=== PATIENT | male | born 1995 | race Two or more races ===

== ENCOUNTER 2018-11-21 11:04 | Emergency (ER) | payer MEDICAID ==
[~2018-11-21] VITALS: Ht 170.2 cm; Wt 61.2 kg
[2018-11-21 12:04] LABS: Basophils # (auto) 0.1 uL; Basophils % (auto) 0.9 % (0.0-2.0); Eosinophils # (auto) 0.1 uL; Eosinophils % (auto) 1.3 % (0.0-7.0); Hematocrit 44.2 % (41.0-53.0); Hemoglobin 15.3 g/dL (13.5-17.5); Lymphocytes # (auto) 1.7 uL; Lymphocytes % (auto) 27.9 % (10.0-50.0); Mean Corpuscular Hemoglobin 31.4 pg (28.0-32.0); Mean Corpuscular Hgb Conc. 34.5 g/dL (32.0-36.0); Mean Corpuscular Volume 90.8 fL (80.0-100.0); Monocytes # (auto) 0.4 uL; Monocytes % (auto) 7.3 % (0.0-12.0); Neutrophils # (auto) 3.8 uL; Neutrophils % (auto) 62.6 % (37.0-80.0); Nucleated Red Blood Cells % 0.2 %; Platelet Count (auto) 234 10^3/uL (140-450); Red Blood Cells 4.86 10^6/uL (4.5-5.90); Red Cell Distribution Width 12.9 % (11.8-14.3)
[2018-11-21 12:08] LABS: Albumin 3.9 g/dL (3.4-5.0); Calcium 8.4 mg/dL (8.5-10.1); Potassium 3.8 mmol/L (3.5-5.1)
[2018-11-21 12:14] LABS: BUN/Creatinine Ratio 8.7; Bilirubin, Total 0.5 mg/dL (0.2-1.0); Total Protein 6.5 g/dL (6.4-8.2)
[2018-11-21 16:10] VITALS: BP 124/64
== END 2018-11-21 16:38 | disposition home or self-care (01) ==
LOC: ER 11:11
DX: K29.70 Gastritis, unspecified, without bleeding (principal); J45.909 Unspecified asthma, uncomplicated; F17.210 Nicotine dependence, cigarettes, uncomplicated; F12.10 Cannabis abuse, uncomplicated; Z87.11 Personal history of peptic ulcer disease
CPT/HCPCS: 36415; 80053; 82150; 83690; 85025

== ENCOUNTER 2019-06-29 12:44 | Emergency (ER) | payer MEDICAID ==
[~2019-06-29] VITALS: Ht 170.2 cm; Wt 59.0 kg
[2019-06-29 15:45] VITALS: BP 90/69
[2019-06-29] MEDS ORDERED: BACITRACIN TOP OINT 1 UD PKG TOP ONE (16:00)
== END 2019-06-29 16:48 | disposition home or self-care (01) ==
LOC: ER 12:49
DX: S61.216A Laceration without foreign body of right little finger without damage to nail, initial encounter (principal); S61.411A Laceration without foreign body of right hand, initial encounter; J45.909 Unspecified asthma, uncomplicated; F17.210 Nicotine dependence, cigarettes, uncomplicated; X58.XXXA Exposure to other specified factors, initial encounter; Y93.89 Activity, other specified; Y92.89 Other specified places as the place of occurrence of the external cause; Y99.8 Other external cause status
CPT/HCPCS: 12001; 73130

== ENCOUNTER 2025-03-07 21:44 | Emergency (ER) | payer MEDICAID ==
[~2025-03-07] VITALS: Ht 170.2 cm; Wt 64.5 kg
--- NOTE | 2025-03-07 22:36 | ED.PDOC ---
History of Present Illness(SKN HPI Comments 29-year-old male presents to the ED chief complaint left ankle swelling and redness x3 days. Patient states over the past 24 hours symptoms have progressed he states redness started after he scratched it he is unsure on what he got bit by states he was lying in bed when something bit him. Denies fever, chills, nausea, vomiting, diarrhea, chest pain, difficulty breathing, shortness breath, numbness or weakness. Chief Complaint: Insect Bite Time Seen by MD: 22:04 Primary Care Provider: NONE History of Present Illness: Nurses Notes, Medications, Allergies Allergies: Coded Allergies: NO KNOWN ALLERGIES (Unverified , 12/29/13) Home Meds Active Scripts Hydroxyzine Hcl (Hydroxyzine Hcl) 50 Mg Tab, 1 TAB PO QPM PRN for 5 Days, #5 TAB Prov:ASIA BROWN [employer] 03/07/25 Prednisone (Prednisone) 20 Mg Tab, 20 MG PO DAILY@BREAKFAST for 3 Days, #3 TAB Prov:ASIA BROWN [employer] 03/07/25 Doxycycline Hyclate (Doxycycline Hyclate) 100 Mg Cap, 100 MG PO BID for 7 Days, #14 CAP Prov:ASIA BROWN [employer] 03/07/25 Information Source: Patient Mode of Arrival: Ambulatory Past Medical History PAST MEDICAL HISTORY: Asthma, PUD Surgical History: Denies all surgeries Family History Family History: Unobtainable Social History Smoker: Cigarettes, Less Than 1 Pack/Day Alcohol: Occasionally Drugs: Marijuana Lives In: Home All Other Systems: Reviewed and Negative (see hpi) Physical Exam General Appearance: No Apparent Distress, Normal HEENT: Pharynx Normal Neck: Full Range of Motion, Non-Tender Respiratory: Lungs Clear, No Respiratory Distress, Normal Breath Sounds Cardiovascular: No Murmur, Normal Peripheral Pulses, Regular Rate/Rhythm Breast Exam: Deferred Gastrointestinal: Non Tender, Soft Genitalia: Deferred Pelvic: Deferred Rectal: Deferred Extremities: No calf tenderness, Normal capillary refill, Normal range of motion, Pedal edema (Trace edema left ankle) Musculoskeletal : Apperance: Normal Neurologic: Alert, No Motor Deficits, Normal Affect, Normal Mood, No Sensory Deficits Cerebellar Function: Normal Reflexes: Normal, L Ankle Skin: Dry, Normal Color, Warm Lymphatic: No Adenopathy Was a procedure done? Was a procedure done?: No Differential Diagnosis (INTG) Differential Diagnosis: Abrasion, Cellulitis, Insect Envenomation, Puncture Wound Differential Diagnosis: Abscess X-Ray, Labs, Meds, VS Vital Signs Date Time Temp Pulse Resp B/P (MAP) Pulse Ox O2 Delivery O2 Flow Rate FiO2 03/07/25 21:48 97.0 90 18 126/88 96 97.0 Time of 1ST Reevaluation: 22:04 Reevaluation 1ST: Unchanged Time of 2ND Reevaluation: 22:38 Reevaluation 2ND: Improved Patient Education/Counseling: Diagnosis, Treatment, Need For Follow Up Family Education/Counseling: No Family Present SEPSIS Sepsis Screen Date sepsis recognized/suspect: Mar 07, 2025 Time Sepsis recognized/suspect: 2147 Recent Procedure: No On Antibiotic Therapy: No Respiratory Rate >20: No Heart Rate >90: No Temp<36 C (96.8 F) or >38.3 C: No SBP <90 or MAP <65 mmHG: No New Acute Mental Status Change: No Is the patient on CPAP, BIPAP,: No Vital Signs Date Time Temp Pulse Resp B/P (MAP) Pulse Ox O2 Delivery O2 Flow Rate FiO2 03/07/25 21:48 97.0 90 18 126/88 96 97.0 Departure 1 Departure Time of Disposition: 22:40 Impression: Primary Impression: Insect bite of ankle, infected Qualified Codes: S90.562A - Insect bite (nonvenomous), left ankle, initial encounter; L08.9 - Local infection of the skin and subcutaneous tissue, unspecified; W57.XXXA - Bitten or stung by nonvenomous insect and other nonvenomous arthropods, initial encounter Disposition: 01 HOME / SELF CARE / HOMELESS Condition: Stable e-Prescriptions Hydroxyzine Hcl (Hydroxyzine Hcl) 50 Mg Tab 1 TAB PO QPM PRN for 5 Days, #5 TAB Prov: ASIA BROWN 03/07/25 Prednisone (Prednisone) 20 Mg Tab 20 MG PO DAILY@BREAKFAST for 3 Days, #3 TAB Prov: ASIA BROWN 03/07/25 Doxycycline Hyclate (Doxycycline Hyclate) 100 Mg Cap 100 MG PO BID for 7 Days, #14 CAP Prov: ASIA BROWN 03/07/25 Discharged With: Self Critical Care Note Critical Care Time?: No Stability Stability form required: No ASIA BROWNP Mar 07, 2025 22:36
[2025-03-07] MEDS ORDERED: PRED20TA2 PO (22:39)
[2025-03-07] MEDS ORDERED: HYDR50TA69 PO (22:39)
[2025-03-07] MEDS ORDERED: DOXY100C4 PO (22:39)
[2025-03-07 23:16] VITALS: BP 105/72; PULSE 56; RESP 18; TEMP 98.5; O2SAT 100
[2025-03-07] MEDS: cefTRIAXone SOD 1,000 MG VL IM ONE (23:16)
[2025-03-07] MEDS: predniSONE 20 MG TAB PO ONE (23:16)
[2025-03-07] MEDS: LIDOCAINE 1% HCL (LOCAL ANESTH.) INJ 20ML MDV ONE (23:20)
== END 2025-03-07 23:27 | disposition home or self-care (01) ==
LOC: ER 21:44
DX: S90.562A Insect bite (nonvenomous), left ankle, initial encounter (principal); F17.210 Nicotine dependence, cigarettes, uncomplicated; F12.90 Cannabis use, unspecified, uncomplicated; F10.90 Alcohol use, unspecified, uncomplicated; J45.909 Unspecified asthma, uncomplicated; L08.9 Local infection of the skin and subcutaneous tissue, unspecified; Z79.52 Long term (current) use of systemic steroids; Z87.11 Personal history of peptic ulcer disease; Z79.899 Other long term (current) drug therapy; W57.XXXA Bitten or stung by nonvenomous insect and other nonvenomous arthropods, initial encounter; Y93.89 Activity, other specified; Y92.89 Other specified places as the place of occurrence of the external cause; Y99.8 Other external cause status; Y90.9 Presence of alcohol in blood, level not specified
CPT/HCPCS: 96372; 99283; J0696; J2003; J7512

== ENCOUNTER 2025-03-29 00:35 | Emergency (ER) | payer MEDICAID ==
[~2025-03-29] VITALS: Ht 170.2 cm; Wt 65.6 kg
[2025-03-29] MEDS ORDERED: CEPH250C PO (01:10)
--- NOTE | 2025-03-29 01:11 | ED.PDOC ---
History of Present Illness(SKN HPI Comments This patient is an otherwise healthy 29-year-old male who arrives the ED today for evaluation of what appears to be insect bites to his foot and right lower extremity. Patient states the bites occurred approximately two days ago and seemed to be increasing in number. 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 Patient denies any fever nausea or vomiting. Patient was seen this facility recently for same complaints. Patient was prescribed antibiotics in the patient states the symptoms went away. Chief Complaint: Insect Bite Time Seen by MD: 00:45 Primary Care Provider: NONE History of Present Illness: Nurses Notes Allergies: Coded Allergies: NO KNOWN ALLERGIES (Unverified , 12/29/13) Information Source: Patient, Friend Mode of Arrival: Ambulatory Severity: Mild Timing: Days Duration: Since onset Prehospital treatment: None Location: Foot, Leg Mechanism: Spontaneous Onset Object: None Condition of Object: None Wound Type: Other (Insect bites) Tetanus: UTD Associated Signs and Symptoms: Redness, Swelling Past Medical History PAST MEDICAL HISTORY: Asthma, PUD Surgical History: Denies all surgeries Family History Family History: Unobtainable Social History Smoker: Cigarettes, Less Than 1 Pack/Day Alcohol: Occasionally Drugs: Marijuana Lives In: Home Constitutional: denies: chills, diaphoresis, fatigue, fever, malaise, sweats, weakness, others EENTM: denies: blurred vision, double vision, ear bleeding, ear discharge, ear drainage, ear pain, ear ringing, eye pain, eye redness, hearing loss, mouth pain, mouth swelling, nasal discharge, nose bleeding, nose congestion, nose pain, photophobia, tearing, throat pain, throat swelling, voice changes, others Respiratory: denies: cough, hemoptysis, orthopnea, SOB at rest, shortness of breath, SOB with excertion, stridor, wheezing, others Cardiovascular: denies: chest pain, dizzy spells, diaphoresis, Dyspnea on exertion, edema, irregular heart beat, left arm pain, lightheadedness, palpitations, PND, syncope, others Gastrointestinal: denies: abdomen distended, abdominal pain, blood streaked bowels, constipated, diarrhea, dysphagia, difficulty swallowing, hematemesis, melena, nausea, poor appetite, poor fluid intake, rectal bleeding, rectal pain, vomiting, others Genitourinary: denies: burning, dysuria, flank pain, frequency, hematuria, incontinence, penile discharge, penile sore, pain, testicle pain, testicle swelling, urgency, others Neurological: denies: dizziness, fainting, headache, left sided numbness, left sided weakness, numbness, paresthesia, pre-existing deficit, right sided numbness, right sided weakness, seizure, speech problems, tingling, tremors, weakness, others Musculoskeletal: denies: back pain, gout, joint pain, joint swelling, muscle pain, muscle stiffness, neck pain, others Integumetry: reports: wounds (Insect bites to right foot and leg); denies: bruises, change in color, change in hair/nails, dryness, laceration, lesions, lumps, rash, others Allergic/Immunocompromised: denies: Difficulty Healing, Frequent Infections, Hives, Itching, others Hematologic/Lymphatic: denies: anemia, blood clots, easy bleeding, easy bruising, swollen glands, others Endocrine: denies: excessive hunger, excessive sweating, excessive thirst, excessive urination, flushing, intolerance to cold, intolerance to heat, unexplained weight gain, unexplained weight loss, others Psychiatric: denies: anxiety, bipolar disorder, depression, hopeless, panic disorder, schizophrenia, sleepless, suicidal, others Physical Exam General Appearance: Mild Distress (Moderate distress due to insect bite discomfort), Normal HEENT: Normal ENT Inspection, Pharynx Normal, TMs Normal Neck: Full Range of Motion, Non-Tender, Normal, Normal Inspection Respiratory: Chest Non-Tender, Lungs Clear, No Accessory Muscle Use, No Respiratory Distress, Normal Breath Sounds Cardiovascular: No Edema, No JVD, No Murmur, No Gallop, Normal Peripheral Pulses, Regular Rate/Rhythm Breast Exam: Deferred Gastrointestinal: No Organomegaly, Non Tender, No Pulsatile Mass, Normal Bowel Sounds, Soft Genitalia: Deferred Pelvic: Deferred Rectal: Deferred Extremities: No calf tenderness, Normal capillary refill, Normal inspection, Normal range of motion, Non-tender, No pedal edema Neurologic: Alert Cerebellar Function: NOT DONE Reflexes: NOT DONE Skin: Wounds (Patient has a multiple insect bites noted to the lateral aspect of the right foot as well as the right lower extremity [id number]. Localized mild erythema and edema. No signs of infection.) Lymphatic: No Adenopathy Was a procedure done? Was a procedure done?: No Differential Diagnosis (INTG) Differential Diagnosis: Other (Flea bites, bed bugs) X-Ray, Labs, Meds, VS Vital Signs Date Time Temp Pulse Resp B/P (MAP) Pulse Ox O2 Delivery O2 Flow Rate FiO2 03/29/25 00:36 98.3 106 18 125/81 97 98.3 X-Ray, Labs, Meds, VS Comment Advised patient that he has an infestation prominent as home as this is the 2nd time he has arrived for same concerns. Patient needs to do a thorough evaluation of his house to isolate any insects that may be causing the concern. Patient will probably require some level of few medication and advised that if he finds bedbugs, he may have to dispose of some furniture. Advise utilizing medication as directed until completion. Time of 1ST Reevaluation: 01:08 Reevaluation 1ST: Improved Consultation: PCP Patient Education/Counseling: Diagnosis, Treatment Family Education/Counseling: Diagnosis, Treatment SEPSIS Sepsis Screen Date sepsis recognized/suspect: Mar 29, 2025 Time Sepsis recognized/suspect: 0040 Recent Procedure: No On Antibiotic Therapy: No Respiratory Rate >20: No Heart Rate >90: No Temp<36 C (96.8 F) or >38.3 C: No SBP <90 or MAP <65 mmHG: No New Acute Mental Status Change: No Is the patient on CPAP, BIPAP,: No Vital Signs Date Time Temp Pulse Resp B/P (MAP) Pulse Ox O2 Delivery O2 Flow Rate FiO2 03/29/25 00:36 98.3 106 18 125/81 97 98.3 Departure 1 Departure Time of Disposition: 01:09 Impression: Primary Impression: Insect bite of ankle, infected Disposition: 01 HOME / SELF CARE / HOMELESS Condition: Stable Additional Instructions: Advised patient utilize antibiotics as directed until completion. Patient needs to eradicate the offending insect in his house to stave off future events. e-Prescriptions Cephalexin (KEFLEX CAPSULE) 250 Mg Cp 1 CAP PO QID for 3 Days, #12 CAP Prov: KELVIN EASTON Vahid PAC 03/29/25 Discharged With: Self, Friend Critical Care Note Critical Care Time?: No Stability Stability form required: No Heart Score Heart Score: Heart Score Response (Comments) Value History N/A 0 EKG N/A 0 Age N/A 0 Risk Factors N/A 0 Troponin N/A 0 Total 0 KELVIN EASTON [facility] Mar 29, 2025 01:11
[2025-03-29 01:25] VITALS: BP 110/79; PULSE 84; RESP 14; TEMP 98.4; O2SAT 99
== END 2025-03-29 01:46 | disposition home or self-care (01) ==
LOC: ER 00:35
DX: S90.561A Insect bite (nonvenomous), right ankle, initial encounter (principal); F17.210 Nicotine dependence, cigarettes, uncomplicated; J45.909 Unspecified asthma, uncomplicated; W57.XXXA Bitten or stung by nonvenomous insect and other nonvenomous arthropods, initial encounter; Y93.89 Activity, other specified; Y92.89 Other specified places as the place of occurrence of the external cause; Y99.8 Other external cause status
CPT/HCPCS: 96372; 99283; J1100